=== PATIENT | female | born 1980 | race Caucasian/White ===

== ENCOUNTER 2019-12-30 10:14 | Emergency (ER) | payer SELFPAY ==
[~2019-12-30] VITALS: Ht 162.6 cm; Wt 48.5 kg
[2019-12-30] MEDS ORDERED: AMITRIPTYLINE100 MG ORAL (10:25)
[2019-12-30 10:31] VITALS: BP 109/77
--- NOTE | 2019-12-30 10:37 | Emergency Room Report ---
History of Present Illness General Chief Complaint: Abdominal Pain Source: Patient Present Illness HPI Disclaimer: Please note that this report is being documented using [employer] technology. This can lead to erroneous entry secondary to incorrect interpretation by the dictating instrument. HPI: 39-year-old female presents for evaluation of right lower quadrant pain. Patient reports sharp and cramping pain in the right lower quadrant since last night. Was more intense and is somewhat better today. She was seen in urgent care and referred to the ED for rule out of appendicitis. She denies fever, chills, nausea, vomiting, diarrhea, dysuria, hematuria, vaginal bleeding or vaginal discharge. Denies history of ovarian torsion of ovarian cyst. 3 weeks ago she stopped taking control which she had been on for many years. LMP 3 weeks ago. Denies alcohol or drug abuse. No history of intra-abdominal surgeries. PMH: Interstitial nephritis PSH: Hernia 3 months old Allergies: Sulfa medications Social Hx: Denied Allergies: Uncoded Allergies: SULFA (Allergy, Unknown, 12/30/19) COVID-19 Screening Contact w/high risk pt: No Experienced COVID-19 symptoms?: No COVID-19 Testing performed PLANT PROTECTION GUARD: No Patient History Last Menstrual Period: 12/09/19 Nursing Documentation-PMH Past Medical History: No Stated History Review of Systems All Other Systems: negative except mentioned in HPI Physical Exam Vital Signs Date Time Temp Pulse Resp B/P (MAP) Pulse Ox O2 Delivery O2 Flow Rate FiO2 12/30/19 10:19 98.6 75 18 109/77 (88) 100 Room Air General: Awake and alert, anxious appearing HEENT: NC/AT. EOMI. Cardiovascular: RRR. S1 and S2 normal. No murmur appreciated Resp: Normal work of breathing. No cough, wheezing or crackles appreciated Abdomen: Abdomen is soft, nondistended. Tender palpation right lower quadrant but no masses palpable, no rebound tenderness. Negative for Rovsing, psoas, obturator signs. No significant tenderness on percussion of the right lower extremity. No tenderness, no guarding in the upper quadrants. Skin: Intact. No abrasions, laceration or rash over the exposed skin MSK: Normal tone and bulk. Moving all extremities. No obvious deformity. Neuro: Awake and alert. Mentating appropriately. Medical Decision Making Diagnostic Impression: Primary Impression: Abdominal pain ER Course Is a 39-year-old female referred to ED from urgent care for evaluation of right lower quadrant pain. Differential includes but is not limited to appendicitis, nephrolithiasis, ovarian cyst, ovarian torsion, perimenopausal pain and cramping , UTI, pyelonephritis, bowel obstruction, constipation to name a few. Pain appears to be improving and patient arrives in stable condition with normal vital signs and no acute distress. Labs and CT have returned largely within normal limits. There is a question of colitis versus under distention of the colon but since the patient has no signs of colitis otherwise believe is secondary to under distention. They also noted prominent vessels which may represent pelvic congestion syndrome in the right clinical context however patient denies any the symptoms at this time and is otherwise feeling well. May be if experienced either gas pain, constipation pain or muscle strain as the patient works out regularly. No indication for further treatment in the emergency department at this time. She is stable for outpatient follow-up with her OBG and PMD. Discussed reasons to return to the ED. She has no concerns or complaints at this time. Copies of her imaging was including her discharge paperwork. She understands and agrees with this treatment plan. Laboratory Tests Test 12/30/19 10:35 White Blood Count 5.9 K/UL (4.8-10.8) Red Blood Count 5.15 M/UL (4.20-5.40) Hemoglobin 14.5 G/DL (12.0-16.0) Hematocrit 45.3 % (37.0-47.0) Mean Corpuscular Volume 88 FL (80-99) Mean Corpuscular Hemoglobin 28.2 PG (27.0-31.0) Mean Corpuscular Hemoglobin Concent 32.1 G/DL (32.0-36.0) Red Cell Distribution Width 11.0 % (11.6-14.8) L Platelet Count 278 K/UL (150-450) Mean Platelet Volume 6.0 FL (6.5-10.1) L Neutrophils (%) (Auto) 64.9 % (45.0-75.0) Lymphocytes (%) (Auto) 26.6 % (20.0-45.0) Monocytes (%) (Auto) 6.3 % (1.0-10.0) Eosinophils (%) (Auto) 0.6 % (0.0-3.0) Basophils (%) (Auto) 1.6 % (0.0-2.0) Urine Color Yellow Urine Appearance Clear Urine pH 7 (4.5-8.0) Urine Specific [place] 1.010 (1.005-1.035) Urine Protein Negative (NEGATIVE) Urine Glucose (UA) Negative (NEGATIVE) Urine Ketones Negative (NEGATIVE) Urine Blood Negative (NEGATIVE) Urine Nitrite Negative (NEGATIVE) Urine Bilirubin Negative (NEGATIVE) Urine Urobilinogen Normal MG/DL (0.0-1.0) Urine Leukocyte Esterase Negative (NEGATIVE) Urine HCG, Qualitative Negative (NEGATIVE) Sodium Level 138 MMOL/L (136-145) Potassium Level 4.0 MMOL/L (3.5-5.1) Chloride Level 102 MMOL/L (98-107) Carbon Dioxide Level 30 MMOL/L (21-32) Anion Gap 6 mmol/L (5-15) Blood Urea Nitrogen 23 mg/dL (7-18) H Creatinine 1.0 MG/DL (0.55-1.30) Estimated Glomerular Filtration Rate > 60 mL/min (>60) Glucose Level 107 MG/DL (74-106) H Calcium Level 9.9 MG/DL (8.5-10.1) Total Bilirubin 0.6 MG/DL (0.2-1.0) Aspartate Amino Transferase (AST) 20 U/L (15-37) Alanine Aminotransferase (ALT) 27 U/L (12-78) Alkaline Phosphatase 45 U/L (46-116) L Total Protein 7.6 G/DL (6.4-8.2) Albumin 4.4 G/DL (3.4-5.0) Globulin 3.2 g/dL Albumin/Globulin Ratio 1.4 (1.0-2.7) Lipase 162 U/L (73-393) CT/MRI/US Diagnostic Results CT/MRI/US Diagnostic Results : Impression Final Report EXAM: CT Abdomen and Pelvis With Intravenous Contrast CLINICAL HISTORY: ABD PAIN TECHNIQUE: Axial computed tomography images of the abdomen and pelvis with intravenous contrast. CTDI is 3.2 mGy and DLP is 152.6 mGy-cm. One or more of the following dose reduction techniques were used: automated exposure control, adjustment of the mA and/or kV according to patient size, use of iterative reconstruction technique. COMPARISON: None FINDINGS: Lung bases: Unremarkable. No mass. No consolidation. ABDOMEN: Liver: Unremarkable. No mass. Gallbladder and bile ducts: Unremarkable. No calcified stones. No ductal dilation. Pancreas: Unremarkable. No mass. No ductal dilation. Spleen: Unremarkable. No splenomegaly. Adrenals: Unremarkable. No mass. Kidneys and ureters: No hydronephrosis or obstructing stone. Stomach and bowel: Wall thickening of the ascending colon, transverse colon, and descending colon which may be secondary to under distention versus colitis. No bowel obstruction. PELVIS: Appendix: Normal appendix. Bladder: Unremarkable. No mass. Reproductive: Prominent periuterine vessels. Please correlate for pelvic congestion syndrome. Dominant follicle or small cyst in the left adnexa. ABDOMEN and PELVIS: Intraperitoneal space: Small amount of fluid in the pelvis. No free air. Bones/joints: No acute fracture. No dislocation. Soft tissues: Unremarkable. Vasculature: Phleboliths in the pelvis. Lymph nodes: Unremarkable. No enlarged lymph nodes. IMPRESSION: 1. Wall thickening of the ascending colon, transverse colon, and descending colon which may be secondary to under distention versus colitis. 2. Small amount of fluid in the pelvis. 3. Prominent periuterine vessels. Please correlate for pelvic congestion syndrome. Radiologist: Esther Nolasco M.D. Electronically Signed: 12/30/19 11:52 Study ready at 11:39 and initial results transmitted at 11:52 Last Vital Signs Date Time Temp Pulse Resp B/P (MAP) Pulse Ox O2 Delivery O2 Flow Rate FiO2 12/30/19 10:31 75 18 Room Air 12/30/19 10:31 98.6 109/77 100 Disposition: HOME, SELF-CARE Condition: Stable Fidel Post MD Dec 30, 2019 10:37
[2019-12-30] MEDS ORDERED: Omnipaque-300 100ml vial INJ PRN (10:45)
[2019-12-30 10:51] LABS: BASOPHILS % (AUTO) 1.6 % (0.0-2.0); EOSINOPHILS % (AUTO) 0.6 % (0.0-3.0); HEMATOCRIT 45.3 % (37.0-47.0); HEMOGLOBIN 14.5 G/DL (12.0-16.0); LYMPHOCYTES % (AUTO) 26.6 % (20.0-45.0); MEAN CORPUSCULAR VOLUME 88 FL (80-99); MONOCYTES % (AUTO) 6.3 % (1.0-10.0); NEUTROPHILS % (AUTO) 64.9 % (45.0-75.0); PLATELET COUNT 278 K/UL (150-450); RED BLOOD COUNT 5.15 M/UL (4.20-5.40); WHITE BLOOD COUNT 5.9 K/UL (4.8-10.8)
[2019-12-30 10:55] LABS: APPEARANCE,URINE CLEAR; COLOR,URINE YELLOW
[2019-12-30 10:56] LABS: BILIRUBIN, URINE NEGATIVE (NEGATIVE); GLUCOSE, URINE (UA) NEGATIVE (NEGATIVE); KETONES,URINE NEGATIVE (NEGATIVE); LEUKOCYTE ESTERASE ,URINE NEGATIVE (NEGATIVE); NITRITE,URINE NEGATIVE (NEGATIVE); PH,URINE 7 (4.5-8.0); PROTEIN,URINE NEGATIVE (NEGATIVE); UROBILINOGEN,URINE NORMAL MG/DL (0.0-1.0)
[2019-12-30 10:58] LABS: ANION GAP 6 mmol/L (5-15); BLOOD UREA NITROGEN 23 mg/dL (7-18); CALCIUM 9.9 MG/DL (8.5-10.1); CARBON DIOXIDE 30 MMOL/L (21-32); CHLORIDE 102 MMOL/L (98-107); SODIUM 138 MMOL/L (136-145)
[2019-12-30 11:02] LABS: ALANINE AMINOTRANSFERASE 27 U/L (12-78); ALBUMIN 4.4 G/DL (3.4-5.0); ALBUMIN/GLOBULIN RATIO 1.4 (1.0-2.7); ALKALINE PHOSPHATASE 45 U/L (46-116); ASPARTATE AMINO TRANSFERASE 20 U/L (15-37); BILIRUBIN,TOTAL 0.6 MG/DL (0.2-1.0)
--- NOTE | 2019-12-30 11:52 | Diagnostic Imaging Report ---
EXAM: CT Abdomen and Pelvis With Intravenous Contrast CLINICAL HISTORY: ABD PAIN TECHNIQUE: Axial computed tomography images of the abdomen and pelvis with intravenous contrast. CTDI is 3.2 mGy and DLP is 152.6 mGy-cm. One or more of the following dose reduction techniques were used: automated exposure control, adjustment of the mA and/or kV according to patient size, use of iterative reconstruction technique. COMPARISON: None FINDINGS: Lung bases: Unremarkable. No mass. No consolidation. ABDOMEN: Liver: Unremarkable. No mass. Gallbladder and bile ducts: Unremarkable. No calcified stones. No ductal dilation. Pancreas: Unremarkable. No mass. No ductal dilation. Spleen: Unremarkable. No splenomegaly. Adrenals: Unremarkable. No mass. Kidneys and ureters: No hydronephrosis or obstructing stone. Stomach and bowel: Wall thickening of the ascending colon, transverse colon, and descending colon which may be secondary to under distention versus colitis. No bowel obstruction. PELVIS: Appendix: Normal appendix. Bladder: Unremarkable. No mass. Reproductive: Prominent periuterine vessels. Please correlate for pelvic congestion syndrome. Dominant follicle or small cyst in the left adnexa. ABDOMEN and PELVIS: Intraperitoneal space: Small amount of fluid in the pelvis. No free air. Bones/joints: No acute fracture. No dislocation. Soft tissues: Unremarkable. Vasculature: Phleboliths in the pelvis. Lymph nodes: Unremarkable. No enlarged lymph nodes. IMPRESSION: 1. Wall thickening of the ascending colon, transverse colon, and descending colon which may be secondary to under distention versus colitis. 2. Small amount of fluid in the pelvis. 3. Prominent periuterine vessels. Please correlate for pelvic congestion syndrome.
[2019-12-30 11:55] VITALS: BP 110/73
== END 2019-12-30 11:55 | disposition home or self-care (01) ==
LOC: EMR 10:30
DX: R10.31 Right lower quadrant pain (principal); Z88.2 Allergy status to sulfonamides
CPT/HCPCS: 36415; 74177; 80053; 81003; 81025; 83690; 85025; 99284; Q9967